=== PATIENT | female | born 1950 | race Caucasian/White ===

== ENCOUNTER → 2017-04-16 | Outpatient (CLI) | payer MEDICARE ==
[~2017-04-16] MED LIST: ABIL5TAB6 PO; BUPR150XL; ESTR0.5T PO; LISI40TA PO; MEDR2.5T19 PO; OXYC1SOL5 PO; PERC5TAB12 PO; PRAM.25 PO; PREV30CA36 PO; RIVA10 PO; TAB-TAB PO; Z.0.WALKERFRONT
[2017-04-16 13:18] LABS: HEMATOCRIT 38.1 % (35.0-46.0); MEAN CELL VOLUME 95.2 FL (80.0-100.0); MEAN CORPUSCULAR HEMOGLOBIN 32.2 PG (27.0-34.0); MEAN CORPUSCULAR HGB CONC 33.8 % (32.0-36.0); PLATELET COUNT 334 TH/MM3 (150-450); REVIEW FLAG FINAL; WHITE BLOOD COUNT 7.9 TH/MM3 (4.0-11.0)
[2017-04-16 13:30] LABS: ALT (GPT) 32 U/L (10-53); ANION GAP 10 MEQ/L (5-15); AST (GOT) 25 U/L (15-37); BICARBONATE 23.5 MEQ/L (21.0-32.0); BLOOD UREA NITROGEN 20 MG/DL (7-18); CHLORIDE 105 MEQ/L (98-107); GLOMERULAR FILTRATION RATE 70 ML/MIN (>89); GLUCOSE,FASTING 82 MG/DL (74-99); POTASSIUM 4.2 MEQ/L (3.5-5.1); SODIUM (NA) 138 MEQ/L (136-145)
[2017-04-16 13:39] LABS: ALKALINE PHOSPHATASE 70 U/L (45-117); HDL CHOLESTEROL 73.3 MG/DL (40.0-60.0); LDL CHOLESTEROL 147 MG/DL (0-99); LDL CHOLESTEROL DIRECT 140 MG/DL (0-99); TOTAL BILIRUBIN ADULT 0.4 MG/DL (0.2-1.0)
[2017-04-16 13:45] LABS: HEMOGLOBIN A1b 1.4 %; HEMOGLOBIN Ao 86.5 %; HEMOGLOBIN P3 3.7 %
== END ==
LOC: PLAB 09:36
PROVIDERS: ATTEND Family Medicine
DX: R53.83 Other fatigue (principal); E78.2 Mixed hyperlipidemia; I10 Essential (primary) hypertension; R73.01 Impaired fasting glucose
CPT/HCPCS: 36415; 80053; 80061; 83036; 83721; 84443; 85027

== ENCOUNTER → 2017-10-17 | Outpatient (CLI) | payer MEDICARE ==
[2017-10-17 13:32] LABS: HEMATOCRIT 37.5 % (35.0-46.0); MEAN CELL VOLUME 96.8 FL (80.0-100.0); MEAN CORPUSCULAR HEMOGLOBIN 33.3 PG (27.0-34.0); MEAN CORPUSCULAR HGB CONC 34.3 % (32.0-36.0); PLATELET COUNT 363 TH/MM3 (150-450); RED BLOOD COUNT 3.87 MIL/MM3 (4.00-5.30); RED CELL DISTRIBUTION WIDTH 12.5 % (11.6-17.2); REVIEW FLAG FINAL; WHITE BLOOD COUNT 8.5 TH/MM3 (4.0-11.0)
[2017-10-17 13:39] LABS: ANION GAP 6 MEQ/L (5-15); AST (GOT) 17 U/L (15-37); BICARBONATE 27.2 MEQ/L (21.0-32.0); BLOOD UREA NITROGEN 20 MG/DL (7-18); CHLORIDE 104 MEQ/L (98-107); GLOMERULAR FILTRATION RATE 72 ML/MIN (>89); POTASSIUM 4.2 MEQ/L (3.5-5.1); SODIUM (NA) 137 MEQ/L (136-145)
[2017-10-17 13:47] LABS: ALKALINE PHOSPHATASE 68 U/L (45-117); ALT (GPT) 27 U/L (10-53); GLUCOSE,FASTING 83 MG/DL (74-99); HDL CHOLESTEROL 74.7 MG/DL (40.0-60.0); LDL CHOLESTEROL 151 MG/DL (0-99); LDL CHOLESTEROL DIRECT 151 MG/DL (0-99); TOTAL BILIRUBIN ADULT 0.4 MG/DL (0.2-1.0)
== END ==
LOC: PLAB 09:18
PROVIDERS: ATTEND Family Medicine
DX: E78.2 Mixed hyperlipidemia (principal); I10 Essential (primary) hypertension; E55.9 Vitamin D deficiency, unspecified; M85.80 Other specified disorders of bone density and structure, unspecified site
CPT/HCPCS: 36415; 80053; 80061; 82306; 83721; 85027

== ENCOUNTER → 2018-04-18 | Outpatient (CLI) | payer MEDICARE ==
[2018-04-18 13:46] LABS: HEMATOCRIT 36.7 % (35.0-46.0); HEMOGLOBIN 12.4 GM/DL (11.6-15.3); MEAN CELL VOLUME 94.5 FL (80.0-100.0); MEAN CORPUSCULAR HEMOGLOBIN 31.8 PG (27.0-34.0); MEAN CORPUSCULAR HGB CONC 33.7 % (32.0-36.0); MEAN PLATELET VOLUME 7.8 FL (7.0-11.0); PLATELET COUNT 382 TH/MM3 (150-450); RED BLOOD COUNT 3.88 MIL/MM3 (4.00-5.30); RED CELL DISTRIBUTION WIDTH 12.7 % (11.6-17.2)
[2018-04-18 21:20] LABS: ALBUMIN 3.7 GM/DL (3.4-5.0); AST (GOT) 48 U/L (15-37); BICARBONATE 23.7 MEQ/L (21.0-32.0); BLOOD UREA NITROGEN 23 MG/DL (7-18); CALCIUM 8.9 MG/DL (8.5-10.1); CHLORIDE 104 MEQ/L (98-107); CREATININE 0.87 MG/DL (0.50-1.00); GLOMERULAR FILTRATION RATE 65 ML/MIN (>89); GLUCOSE,FASTING 77 MG/DL (74-99); SODIUM (NA) 138 MEQ/L (136-145)
[2018-04-18 21:21] LABS: ALT (GPT) 116 U/L (10-53); CHOLESTEROL 225 MG/DL (120-200); TRIGLYCERIDES 89 MG/DL (42-150)
[2018-04-18 21:25] LABS: ALKALINE PHOSPHATASE 87 U/L (45-117); CHOLESTEROL/ HDL RATIO 3.13 RATIO; HDL CHOLESTEROL 71.7 MG/DL (40.0-60.0); LDL CHOLESTEROL 136 MG/DL (0-99); LDL CHOLESTEROL DIRECT 149 MG/DL (0-99); TOTAL BILIRUBIN ADULT 0.3 MG/DL (0.2-1.0); TOTAL PROTEIN 6.7 GM/DL (6.4-8.2)
== END ==
LOC: PLAB 09:11
PROVIDERS: ATTEND Family Medicine
DX: E78.2 Mixed hyperlipidemia (principal); I10 Essential (primary) hypertension; R73.01 Impaired fasting glucose; E55.9 Vitamin D deficiency, unspecified; M85.80 Other specified disorders of bone density and structure, unspecified site
CPT/HCPCS: 36415; 80053; 80061; 82306; 83036; 83721; 85027